=== PATIENT | male | born 1930 | race Caucasian/White ===

== ENCOUNTER 2019-01-07 07:49 | Inpatient (IN) | payer OTHER ==
[~2019-01-07] VITALS: Ht 172.7 cm; Wt 95.7 kg
[2019-01-07] VITALS (7 sets, daily range): BP systolic 106–134; BP diastolic 50–78
--- NOTE | 2019-01-07 08:07 | NUR ---
RT AT BEDSIDE ADMINISTERING BREATHING TREATMENT
[2019-01-07 08:23] LABS: HEMATOCRIT 33.1 % (42.0-52.0); HEMOGLOBIN 10.2 gm/dL (14.0-18.0); MCH 28.8 pg (26.0-34.0); MCHC 30.8 g/dL (28.0-37.0); MCV 93.3 fL (80.0-100.0); MPV 8.1 fl. (7.2-11.1); NUCLEATED RBCS 0 /100WBC; PLATELET COUNT* 407 thou/uL (150-400); RBC 3.55 mil/uL (4.50-6.00); RDW-CV 15.1 % (10.5-14.5)
[2019-01-07 08:28] LABS: WBC 122.5 thou/uL (4.0-11.0)
[2019-01-07 08:32] LABS: ANION GAP 8 mmol/L (7-16); APTT 32.7 Seconds (25.0-31.3); BUN 13 mg/dL (7-18); CALCIUM 8.6 mg/dL (8.5-10.1); CHLORIDE 96 mmol/L (98-107); CO2 29 mmol/L (21-32); CREATININE 0.8 mg/dL (0.6-1.3); GLUCOSE 108 mg/dL (70-99); INR 1.1; POTASSIUM 3.9 mmol/L (3.5-5.1); PROTIME 11.3 Seconds (9.20-11.50); SODIUM 133 mmol/L (136-145)
[2019-01-07 08:47] LABS: ALBUMIN 2.9 g/dL (3.4-5.0); ALKALINE PHOSPHATASE 49 U/L (46-116); LIPASE 61 U/L (73-393); MAGNESIUM 1.7 mg/dL (1.8-2.4); NT-PRO BRAIN NAT PEPTIDE 2322 pg/mL (<300); SGOT 19 U/L (15-37); SGPT 18 U/L (30-65); TOTAL BILIRUBIN 0.4 mg/dL (<0.1-1.0); TOTAL PROTEIN 6.4 g/dL (6.4-8.2); TROPONIN-I LEVEL <0.06 ng/mL (<0.06)
[2019-01-07 09:12] LABS: ABSOLUTE EOSINOPHILS 2.5 thou/uL (0.0-0.7); ABSOLUTE LYMPHOCYTES 104.1 thou/uL (0.8-5.3); ABSOLUTE MONOCYTES 1.2 thou/uL (0.0-1.2); ABSOLUTE NEUTROPHILS 14.7 thou/uL (1.6-8.1)
[2019-01-07 09:14] LABS: ATYPICAL LYMPHS 68 %
[2019-01-07 09:15] LABS: MICROCYTES 1+; PLATELET ESTIMATE ADEQUATE
[2019-01-07 09:16] LABS: HYPOCHROMASIA 1+
--- NOTE | 2019-01-07 14:00 | NUR ---
REPORT GIVEN TO ZA WEBER WHO IS TO ASSUME PT CARE INPATIENT NURSE. PT AND PT FAMILY MADE AWARE THAT PT WILL BE TAKE TO ROOM 200 VIA STRETCHER WITH CARDIAC MONITORING BY THIS NURSE; STATED UNDERSTANDING. BELONGINGS PACKED IN BAG, BAG TO BE TAKEN TO ROOM 200 WITH PT.
--- NOTE | 2019-01-07 14:20 | 2DMMODE ---
[place] [address] 2 D/M-MODE ECHOCARDIOGRAM Name: SRINIVAS PEDRAZA Room: [address] IN [facility]#: [id number] Admission: 01/07/19 Attend Phys: Teresa Rushing, Discharge: Date of : [birth year] Date of Service: 01/07/19 1419 Report #: [id number] THIS REPORT FOR: //name// APPROVED REPORT Study performed: 01/07/2019 10:35:53 EXAM: Comprehensive 2D, Doppler, and color-flow Echocardiogram Patient Location: In-Patient Room #: er Status: routine BSA: 2.09 HR: 80 bpm BP: 124/65 mmHg Rhythm: NSR Other Information Study Quality: Good Indications Atrial Fibrillation Dyspnea 2D Dimensions IVSd: 12.86 (7-11mm) LVOT Diam: 21.22 (18-24mm) LVDd: 48.09 mm PWd: 11.89 (7-11mm) Ascending Ao: 32.40 (22-36mm) LVDs: 23.73 (25-40mm) Aortic Root: 37.77 mm Volumes Left Atrial Volume (Systole) LA ESV Index: 74.00 mL/m2 Aortic Valve AoV Peak Tom.: 1.75 m/s AO Peak Gr.: 12.22 mmHg LVOT Max P.00 mmHg AO Mean Gr.: 6.65 mmHg LVOT Mean P.50 mmHg LVOT Max V: 1.12 m/s AO V2 VTI: 30.65 cm LVOT Mean V: 0.73 m/s ASPEN (VTI): 2.41 cm2 LVOT V1 VTI: 20.89 cm TDI Medial E' Tom.: 0.08 m/s Lateral E' Tom.: 0.13 m/[place] [address] 2 D/M-MODE ECHOCARDIOGRAM Name: SRINIVAS PEDRAZA Room: [address] IN [facility]#: [id number] Admission: 01/07/19 Attend Phys: Teresa Rushing, Discharge: Date of : [birth year] Date of Service: 01/07/19 1419 Report #: [id number] Pulmonary Valve PV Peak Tom.: 1.09 m/s PV Peak Gr.: 4.76 mmHg Tricuspid Valve RAP Estimate: 5.00 mmHg TR Peak Gr.: 24.87 mmHg RVSP: 30.00 mmHg PA Pressure: 30.00 mmHg Left Ventricle The left ventricle is normal size. There is normal LV segmental wall motion. Mild concentric left ventricular hypertrophy. Left ventricular systolic function is normal. The left ventricular ejection fraction is within the normal range. LVEF is 65%. The left ventricular diastolic function is normal. Right Ventricle The right ventricle is normal size. The right ventricular systolic function is normal. Atria Left atrium is moderately dilated. The right atrium size is normal. Aortic Valve Mild aortic valve sclerosis. No aortic regurgitation is present. There is no aortic valvular stenosis. Mitral Valve Moderate mitral annular calcification. Mild mitral regurgitation. No evidence of mitral valve stenosis. Tricuspid Valve The tricuspid valve is normal in structure. Trace tricuspid regurgitation. Borderline pulmonary hypertension. Pulmonic Valve The pulmonary valve is normal in structure. There is no pulmonic valvular regurgitation. Great Vessels The aortic root is normal in size. IVC is normal in size and collapses >50% with inspiration. Pericardium There [place] [address] 2 D/M-MODE ECHOCARDIOGRAM Name: SRINIVAS PEDRAZA Room: [address] IN [facility].#: [id number] Admission: 01/07/19 Attend Phys: Teresa Rushing, Discharge: Date of : [birth year] Date of Service: 01/07/19 1419 Report #: [id number] <Conclusion> The left ventricle is normal size. Mild concentric left ventricular hypertrophy. Left ventricular systolic function is normal. The left ventricular ejection fraction is within the normal range. LVEF is 65%. The right ventricle is normal size. Left atrium is moderately dilated. Mild aortic valve sclerosis. No aortic regurgitation is present. There is no aortic valvular stenosis. Moderate mitral annular calcification. Mild mitral regurgitation. No evidence of mitral valve stenosis. The tricuspid valve is normal in structure. IVC is normal in size and collapses >50% with inspiration. There is no pericardial effusion. There is normal LV segmental wall motion. <ELECTRONICALLY SIGNED> By: Herson Newton MD, [facility] 01/07/19 1419 1419 1419 Herson Newton MD, FACC /INF
[2019-01-07] MEDS ORDERED: ELIQUIS5 MG PO (15:05)
[2019-01-07] MEDS ORDERED: TOPROL XL25 MG PO (15:05)
[2019-01-07] MEDS ORDERED: METFORMIN HCL500 MG PO ×2 (15:06→15:15)
[2019-01-07] MEDS ORDERED: PROTONIX40 M1 PO (15:06)
[2019-01-07] MEDS ORDERED: SYNTHROID150 MCG PO (15:06)
[2019-01-07] MEDS ORDERED: MYRBETRIQ50 MG PO (15:07)
[2019-01-07] MEDS ORDERED: ZOCOR20 MG PO (15:08)
[2019-01-07] MEDS ORDERED: NORCO 5-325 TA1 EACH PO (15:08)
[2019-01-07] MEDS ORDERED: MUCINEX600 MG PO (15:09)
[2019-01-07] MEDS ORDERED: VENTOLIN HFA 1818 GM INH (15:09)
[2019-01-07] MEDS ORDERED: IMBRUVICA140 MG PO (15:09)
[2019-01-07] MEDS ORDERED: IRON325 PO (15:10)
[2019-01-07] MEDS ORDERED: COLACE100 MG PO (15:11)
[2019-01-07] MEDS ORDERED: CLARITIN10 MG PO (15:12)
[2019-01-07] MEDS ORDERED: MELATONIN5 M1 PO (15:12)
[2019-01-07] MEDS ORDERED: FISH OIL 1,001000 M2 PO (15:13)
[2019-01-07] MEDS ORDERED: CENTRUM SILVER1 EAC4 PO (15:13)
[2019-01-07] MEDS ORDERED: CALCIUM 600 +1 EAC1 PO (15:14)
[2019-01-07] MEDS ORDERED: FLONASE 0.05%50 MCG NASAL (15:16)
[2019-01-07] MEDS ORDERED: LASIX 20 MG TAB20 MG PO (15:16)
--- NOTE | 2019-01-07 16:35 | NUR ---
RECEIVED REPORT FROM YUMIKO IN ED AND ASSUMED CARE OF PT @ 1400.PT IS A/O X4,VSS,TRACING SR WITH BBB AND 1ST DEGREE ON THE MONITOR.PT REMAINS ON 3L O2 NC.IV PATENT AND SALINE LOCKED.FAMILY AT BEDSIDE.PT IS CALM AND COOPERATIVE WITH NO C/O PAIN AT TIME OF ASSESSMENT.PT LEFT RESTING IN RECLINER WITH CALL LIGHT AND FALL PRECAUTIONS IN PLACE.WILL CONTINUE TO MONITOR.
--- NOTE | 2019-01-07 17:39 | EKG ---
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: Booker ROCHE : 1930 Requested By: Jordy Orantes Order Number: [id number] MD: Kamran Garcia Measurements Intervals [place] Rate: 85 P: 198 MI: 237 QRS: -87 QRSD: 154 T: 69 QT: 420 QTc: 500 Interpretive Statements Sinus or ectopic atrial rhythm Prolonged MI interval RBBB and LAFB No previous ECG available for comparison Electronically Signed On 01-07-2019 17:39:31 CDT by Kamran Garcia [email or web address] <ELECTRONICALLY SIGNED> By: Kamran Garcia MD, [facility] 01/07/19 1739 [id number] Kamran Garcia MD, [facility] /EPI
--- NOTE | 2019-01-07 18:35 | NUR ---
VSS.CARDIAC MONITORING IN PLACE WITH NO CHANGES.PT REMAINS ON 3L O2 NC.PT PROGRESSING TOWARDS GOALS.NO C/O PAIN.BREATHING TREATMENTS RECEIVED.IV PATENT AND SALINE LOCKED.FAMILY AT BEDSIDE.HOURLY ROUNDING COMPLETED FOR PT SAFETY.CALL LIGHT AND FALL PRECAUTIONS IN PLACE.WILL CONTINUE TO MONITOR FOR DURATION OF SHIFT.
[2019-01-08 04:00] VITALS: BP 114/57
[2019-01-08 05:01] LABS: HEMATOCRIT 31.8 % (42.0-52.0); HEMOGLOBIN 9.8 gm/dL (14.0-18.0); MCH 28.4 pg (26.0-34.0); MCV 91.5 fL (80.0-100.0); RBC 3.47 mil/uL (4.50-6.00); RDW-CV 15.5 % (10.5-14.5)
--- NOTE | 2019-01-08 05:06 | NUR ---
ASSUMED CARE OF PT AFTER REPORT AT 1930. PT A&OX4. VSS. PHYSICAL ASSESSMENT COMPLETED AND CHARTED. PT ON O2 AT 3L NC. PT TRACING SR/ST/BBB WITH RUNS OF SVT WHEN UP ON TELE. PT UPSTANDBY TO RESTROOM. PT COMPLAINED OF NASAL CONGESTION & NASAL DRYNESS-DR ALEMAN INFORMED WITH NEW ORDERS. PT COMPLAINED OF BACK PAIN- PAIN MEDS GIVEN PER OCT. HOURLY ROUNDING OBSERVED. CALL LIGHT WITHIN REACH.
[2019-01-08 05:17] LABS: ALBUMIN 3.2 g/dL (3.4-5.0); CALCIUM 9.3 mg/dL (8.5-10.1); CREATININE 0.8 mg/dL (0.6-1.3); MAGNESIUM 1.9 mg/dL (1.8-2.4); POTASSIUM 4.4 mmol/L (3.5-5.1); TOTAL BILIRUBIN 0.4 mg/dL (<0.1-1.0); TOTAL PROTEIN 6.6 g/dL (6.4-8.2)
[2019-01-08 05:21] LABS: WBC 118.6 thou/uL (4.0-11.0)
[2019-01-08 08:03] VITALS: BP 137/67
[2019-01-08 12:20] VITALS: BP 133/73
--- NOTE | 2019-01-08 14:13 | NUR ---
Pt is A&O. Resides at home with his . Independent, supportive family that is available if needed. Pt has a walker, scooter, RW and home o2. Hx of HH. No hx of SNF. Goal is home at [place]. Pt may benefit from HH, following.
[2019-01-08 16:16] VITALS: BP 122/63
--- NOTE | 2019-01-08 17:17 | NUR ---
PT CARE ASSUMED AFTER REPORT. ASSESSMENT COMPLETE. SR/BBB ON MONITOR. PT HR ESCALATES TO SVT WHILE AMBULATING. 160/180'S. DR TIRADO NOTIFIED. MEDICATION ADJUSTED PER DR TIRADO. UP WITH STB TO BATHROOM. O2 3L NC. DENIES PAIN. PROGRESSING TOWARDS GOALS.
[2019-01-08 20:00] VITALS: BP 126/69
[2019-01-09] VITALS: BP 135/64
[2019-01-09 04:00] VITALS: BP 156/76
[2019-01-09 04:56] LABS: HEMATOCRIT 33.3 % (42.0-52.0); HEMOGLOBIN 10.5 gm/dL (14.0-18.0); MCH 29.1 pg (26.0-34.0); MCHC 31.7 g/dL (28.0-37.0); MPV 8.4 fl. (7.2-11.1); RBC 3.62 mil/uL (4.50-6.00); RDW-CV 15.7 % (10.5-14.5)
[2019-01-09 05:15] LABS: ALBUMIN 3.5 g/dL (3.4-5.0); CALCIUM 9.3 mg/dL (8.5-10.1); CREATININE 0.9 mg/dL (0.6-1.3); MAGNESIUM 1.9 mg/dL (1.8-2.4); POTASSIUM 4.1 mmol/L (3.5-5.1); TOTAL BILIRUBIN 0.6 mg/dL (<0.1-1.0); TOTAL PROTEIN 6.9 g/dL (6.4-8.2)
--- NOTE | 2019-01-09 06:01 | NUR ---
ASSUMED CARE OF PT AFTER REPORT AT 1930. PT A&OX4. FORGETFUL. VSS. PHYSICAL ASSESSMENT COMPLETED AND CHARTED. PT ON AT 3L NC. PT TRACING SR/BBB/SVT WHEN UP ON TELE. PT UPSTANDBY TO RESTROOM. PT COMPLAINED OF BACK & SOB WITHN NASAL CONGESTION- MEDS GIVEN PER OCT. PT O2 SATURATION 98-100%. CALL LIGHT WITHIN REACH.
[2019-01-09 06:25] LABS: WBC 111.8 thou/uL (4.0-11.0)
[2019-01-09 08:00] VITALS: BP 129/73
[2019-01-09] MEDS ORDERED: IPRAT-ALBUT 0.5-3 ML INH (10:55)
[2019-01-09] MEDS ORDERED: TOPROL XL50 MG PO (10:55)
[2019-01-09] MEDS ORDERED: PULMICORT0.5 MG/22 INH (10:55)
[2019-01-09] MEDS ORDERED: PREDNISONE 10 M10 MG PO (10:55)
[2019-01-09] MEDS ORDERED: LEVAQUIN 500 M500 M2 PO (10:55)
[2019-01-09] MEDS ORDERED: NEBULIZER MISCELL (10:56)
[2019-01-09 11:24] VITALS: BP 129/73
--- NOTE | 2019-01-09 11:25 | NUR ---
Pt discharging to home today. faxed resumption orders to [facility]. and granddtr in room and aware of disposition. will transport. Chris order faxed to Daniella at [facility] to be delivered to Pt's home.
[2019-01-09] MEDS ORDERED: COLACE100 MG PO (12:42)
--- NOTE | 2019-01-09 14:10 | NUR ---
ASSUME PT CARE AT 0700, A&O X4 WITH SOME FORGETFULNESS, UP WITH STANDBY ASSIT, PT REFUSES TO USE WALKER. VSS, REMAINS ON O2 3LPM VIA NC, SHELL MOLDER TRACING SINUS RHYTHM WITH BBB. LS DIMINISHED WITH WHEEZING THROUGHOUT. 3+ NON PITTING EDEMA TO BLE, EDUCATION GIVEN ON IMPORTANCE OF KEEPING FEET ELEVATED. PT DISCHARGED AT APPROX 1400 VIA WHEELCHAIR WITH SPOUSE AND NURSING STAFF. EDUCATED ON ALL DISCHARGE INSTRUCTIONS INCLUDING MEDICATIONS AND FOLLOW UP APPTS. SHELL MOLDER AND IV REMOVED, HOURLY ROUNDING COMPLETED.
== END 2019-01-09 13:59 | disposition home health service (06) | DRG 177 ==
LOC: M.ERS 07:49 → M.2W 08:52 → M.TBA-ER 08:52 → M.2W 14:21
PROVIDERS: Family Medicine; ADMIT Internal Medicine
DX: J15.6 Pneumonia due to other Gram-negative bacteria (principal); J96.21 Acute and chronic respiratory failure with hypoxia; J44.1 Chronic obstructive pulmonary disease with (acute) exacerbation; J44.0 Chronic obstructive pulmonary disease with (acute) lower respiratory infection; R00.0 Tachycardia, unspecified; I48.91 Unspecified atrial fibrillation; Z88.0 Allergy status to penicillin; Z87.891 Personal history of nicotine dependence

== ENCOUNTER 2019-01-15 11:51 | Emergency (ER) | payer OTHER ==
[~2019-01-15] VITALS: Ht 172.7 cm; Wt 97.1 kg
[~2019-01-15 11:51] MED LIST: CALCIUM 600 +1 EAC1 PO; CENTRUM SILVER1 EAC4 PO; CLARITIN10 MG PO; COLACE100 MG PO; ELIQUIS5 MG PO; FISH OIL 1,001000 M2 PO; FLONASE 0.05%50 MCG NASAL; IMBRUVICA140 MG PO; IPRAT-ALBUT 0.5-3 ML INH; IRON325 PO; LASIX 20 MG TAB20 MG PO; LEVAQUIN 500 M500 M2 PO; MELATONIN5 M1 PO; METFORMIN HCL500 MG PO; MUCINEX600 MG PO; MYRBETRIQ50 MG PO; NEBULIZER MISCELL; NORCO 5-325 TA1 EACH PO; PREDNISONE 10 M10 MG PO; PROTONIX40 M1 PO; PULMICORT0.5 MG/22 INH; SYNTHROID150 MCG PO; TOPROL XL25 MG PO; TOPROL XL50 MG PO; VENTOLIN HFA 1818 GM INH; ZOCOR20 MG PO
[2019-01-15 12:25] LABS: HEMOGLOBIN 10.4 gm/dL (14.0-18.0)
[2019-01-15 12:28] LABS: HEMATOCRIT 32.8 % (42.0-52.0); MCH 29.1 pg (26.0-34.0); MCHC 31.7 g/dL (28.0-37.0); MPV 8.7 fl. (7.2-11.1); NUCLEATED RBCS 0 /100WBC; PLATELET COUNT* 358 thou/uL (150-400); RBC 3.56 mil/uL (4.50-6.00)
[2019-01-15 12:31] LABS: WBC 111.4 thou/uL (4.0-11.0)
[2019-01-15 12:33] LABS: ANION GAP 8 mmol/L (7-16); BUN 15 mg/dL (7-18); CALCIUM 8.4 mg/dL (8.5-10.1); CHLORIDE 93 mmol/L (98-107); CO2 29 mmol/L (21-32); CREATININE 0.8 mg/dL (0.6-1.3); GLUCOSE 140 mg/dL (70-99); SODIUM 130 mmol/L (136-145)
[2019-01-15 12:42] LABS: ALBUMIN 3.2 g/dL (3.4-5.0); ALKALINE PHOSPHATASE 43 U/L (46-116); SGOT 15 U/L (15-37); SGPT 23 U/L (30-65); TOTAL BILIRUBIN 0.7 mg/dL (<0.1-1.0); TOTAL PROTEIN 6.4 g/dL (6.4-8.2); TROPONIN-I LEVEL <0.06 ng/mL (<0.06)
[2019-01-15 13:12] LABS: ABSOLUTE LYMPHOCYTES 99.1 thou/uL (0.8-5.3); ABSOLUTE MONOCYTES 2.2 thou/uL (0.0-1.2); PLATELET ESTIMATE ADEQUATE
[2019-01-15 14:28] VITALS: BP 114/50
--- NOTE | 2019-01-15 16:14 | EKG ---
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: Booker ROCHE : 1930 Requested By: Elyssa Peñaloza Order Number: [id number] MD: Stan Freedman Measurements Intervals [place] Rate: 60 P: 141 AR: 208 QRS: -83 QRSD: 157 T: 45 QT: 476 QTc: 476 Interpretive Statements sinus rhythm with 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
== END 2019-01-15 14:29 | disposition home or self-care (01) ==
LOC: M.ERS 11:51
PROVIDERS: Physician Assistant
DX: J18.9 Pneumonia, unspecified organism (principal); C91.10 Chronic lymphocytic leukemia of B-cell type not having achieved remission; J44.9 Chronic obstructive pulmonary disease, unspecified; I48.91 Unspecified atrial fibrillation; Z88.0 Allergy status to penicillin